=== PATIENT | female | born 1960 | race Caucasian/White ===

== ENCOUNTER → 2020-12-24 | Outpatient (CLI) | payer OTHER ==
--- NOTE | 2020-12-24 13:54 | US ---
EXAMINATION TYPE: US thyroid st tissue head/neck DATE OF EXAM: 12/24/2020 COMPARISON: NONE CLINICAL HISTORY: E04.9 THYROID GOITER. GLAND SIZE: Right Lobe: 4.0 x 1.1 x 1.6 cm Overall Parenchyma: heterogenous Left Lobe: 7.3 x 4.4 x 5.6 cm Overall Parenchyma: heterogeneous Isthmus Thickness: 0.8 cm NODULES RIGHT: # of nodules measured on right: 1 1. 0.5 X 0.4 x 0.4 cm, mid , solid or almost completely solid, hypoechoic nodule, which is wider th an tall, with smooth margins, without echogenic foci. TR4 Prior size: No previous at this facility LEFT: # of nodules measured on left: 1 1. 6.3 X 3.7 x 5.0 cm, mid , solid or almost completely solid, isoechoic nodule, which is wider piedad n tall, with smooth margins, without echogenic foci. TR3 Prior size: No previous ISTHMUS: # of nodules measured in the isthmus: 0 Bilateral neck scanned, no evidence of lymphadenopathy. IMPRESSION: Mildly suspicious subcentimeter nodule right lobe thyroid 2017 ACR TI-RADS LEVEL: TR-RADS 4 - Moderately Suspicious: Follow if > 1 cm, FNA if > 1.5 cm *Highest TI-RADS level nodule reported
== END | disposition home or self-care (01) ==
LOC: RADUSWWP 13:26
PROVIDERS: ATTEND Internal Medicine
DX: E04.1 Nontoxic single thyroid nodule (principal)
CPT/HCPCS: 76536

== ENCOUNTER → 2020-12-29 | Outpatient (CLI) | payer OTHER ==
--- NOTE | 2020-12-29 16:54 | BD ---
EXAMINATION TYPE: Axial Bone Density DATE OF EXAM: 12/29/2020 COMPARISON: NONE CLINICAL HISTORY: 60 YR OLD FEMALE.....ICD-10 CODE: M85.50 POST JOSE GUADALUPE Height: 63 Weight: 264 FRAX RISK QUESTIONS: History of Fracture in Adulthood: YES Secondary Osteoporosis: YES 3. Menopause before 45: YES RISK FACTORS HISTORY OF: HX OF RT FOOT FX AN ADULT Family History of Osteoporosis: YES, MOTHER AND SISTER, NO FX Postmenopausal woman: YES AT ABOUT 39 YRS, NATURALLY, TOTAL HYST 10 YRS AGO Take estrogen and/or progesterone medications: BCPs FOR 10-15 YRS Hyperparathyroidism: NO Adrenal Insufficiency: NO MEDICATIONS: Thyroid Medications: YES, SYNTHROID, FOR ABOUT 2-3 YRS, GOITER Additional Medications: BP MEDS, STATIN FOR CHOLESTEROL, VIT D Additional History: HYPERTENSION, CHOLESTEROL, GOITER, EXAM MEASUREMENTS: Bone mineral densitometry was performed using the [employer] System. Bone mineral density as measured about the Lumbar spine is: ----- L1-L4(G/cm2): 1.078 T Score Values are as follows: ----- L1: -1.3 ----- L2: -1.5 ----- L3: -0.7 ----- L4: -0.1 ----- L1-L4: -0.8 Bone mineral density FIRST BONE DENSITY STUDY AT [facility] Bone mineral density about the R hip (g/cm2): 1.035 Bone mineral density about the L hip (g/cm2): 1.023 T Score values are as follows: -----R Neck: 0.0 -----L Neck: -0.7 -----R Total: 0.2 -----L Total: 0.1 Bone mineral density FIRST DEXA AT [facility] FRAX%s: THERE IS A 10.3% CHANCE FOR A MAJOR OSTEOPOROTIC FX AND A 0.4% FOR HIP......PROBABILITY F OR FX IN 10 YRS TIME IMPRESSION: Normal (Values between +1 and -1 indicate normal bone mass). Consider repeating this study in 5 year s or sooner if there is some new clinical indication. NOTE: T-SCORE=SD OF THE YOUNG ADULT MEAN.
--- NOTE | 2021-01-03 08:58 | MM ---
Reason for exam: screening (asymptomatic). Last mammogram was performed 1 year and 6 months ago. History: Patient is postmenopausal and had first child at age 32. Took hormonal contraceptives beginning at age 23. Physical Findings: A clinical breast exam by your physician is recommended on an annual basis and results should be correlated with mammographic findings. MG Screening Mammo w CAD Bilateral CC and MLO view(s) were taken. Prior study comparison: July 12, 2019, mammogram, performed at [facility]. July 06, 2018, mammogram, performed at [facility]. There are scattered fibroglandular densities. No significant changes when compared with prior studies. ASSESSMENT: Negative, BI-RAD 1 RECOMMENDATION: Routine screening mammogram of both breasts in 1 year.
== END | disposition home or self-care (01) ==
LOC: RADMAMWWP 13:27
PROVIDERS: ATTEND Internal Medicine
DX: Z12.31 Encounter for screening mammogram for malignant neoplasm of breast (principal); Z78.0 Asymptomatic menopausal state; M81.8 Other osteoporosis without current pathological fracture
CPT/HCPCS: 77067; 77080

== ENCOUNTER → 2022-01-05 | Outpatient (CLI) | payer OTHER ==
--- NOTE | 2022-01-05 08:30 | US ---
EXAMINATION TYPE: US thyroid st tissue head/neck DATE OF EXAM: 01/05/2022 COMPARISON: 12/24/2020 CLINICAL HISTORY: E04.9 THYROID NODULE. follow up thyroid nodules GLAND SIZE: Right Lobe: 6.0 x 1.9 x 1.8 cm Overall Parenchyma: heterogenous Left Lobe: 7.6 x 4.0 x 5.2 cm Overall Parenchyma: heterogeneous Isthmus Thickness: 0.5 cm NODULES RIGHT: # of nodules measured on right: 1 1. 0.6 X 0.4 x 0.6 cm, mid , solid or almost completely solid, hypoechoic nodule, which is wider th an tall, with smooth margins, without echogenic foci. Prior size: 0.5 x 0.4 x 0.4 cm LEFT: # of nodules measured on left: 1 1. 6.1 X 3.8 x 6.0 cm, mid , mixed cystic and solid, isoechoic nodule, which is wider than tall, wi th ill-defined margins, without echogenic foci. Prior size: 6.3 x 3.7 x 5.0 cm ISTHMUS: # of nodules measured in the isthmus: 0 Bilateral neck scanned, no evidence of lymphadenopathy. IMPRESSION: Stable nonspecific thyroid nodularity.
--- NOTE | 2022-01-06 07:27 | MM ---
Reason for Exam: Screening (asymptomatic). Last screening mammogram was performed 12 month(s) ago. Patient History: Menarche at age 10. First Full-Term at age 32. Late child-bearing (after 28). Left ovary removed at age 53. Right ovary removed at age 53. Hysterectomy at age 53. Postmenopausal. Hormonal Contraceptives, from age 23 until age 33. Bilateral Reduction. Risk Values: Dee 5 year model risk: 2.2%. NCI Lifetime model risk: 9.1%. Prior Study Comparison: 07/06/2018 Screening Mammogram, [facility]. 07/12/2019 Screening Mammogram, [facility]. 12/29/2020 Bilateral Screening Mammogram, [facility]. Tissue Density: The breast tissue is almost entirely fat. Findings: Analyzed By CAD. Some loosely grouped and scattered benign-appearing small round calcifications bilaterally are redemonstrated. There is no suspicious group of microcalcifications or new suspicious mass in either breast. Overall Assessment: Benign, BI-RAD 2 Management: Screening Mammogram of both breasts in 1 year. A clinical breast exam by your physician is recommended on an annual basis and results should be correlated with mammographic findings. Electronically signed and approved by: Subhash Vo M.D.
== END | disposition home or self-care (01) ==
LOC: RADMAMWWP 07:30
PROVIDERS: ATTEND Internal Medicine
DX: Z12.31 Encounter for screening mammogram for malignant neoplasm of breast (principal); E04.9 Nontoxic goiter, unspecified; Z78.0 Asymptomatic menopausal state
CPT/HCPCS: 76536; 77067

== ENCOUNTER → 2022-06-03 | Outpatient (CLI) | payer OTHER ==
--- NOTE | 2022-06-03 10:11 | XR ---
EXAMINATION TYPE: XR chest 2V DATE OF EXAM: 06/03/2022 10:02 AM COMPARISON: None TECHNIQUE: XR chest 2V Frontal and lateral views of the chest. CLINICAL INDICATION:Female, 61 years old with history of R05.9 COUGH; FINDINGS: Lungs/Pleura: There is no evidence of pleural effusion, focal consolidation, or pneumothorax. Pulmonary vascularity: Unremarkable. Heart/mediastinum: Cardiomediastinal silhouette is unremarkable. Musculoskeletal: No acute osseous pathology. IMPRESSION: No acute cardiopulmonary disease/process.
[2022-06-03 16:42] LABS: Basophils # (A) 0.05 X 10*3/uL (0.00-0.10); Basophils % (A) 0.5 %; Eosinophils # (A) 0.14 X 10*3/uL (0.04-0.35); Eosinophils % (A) 1.4 %; HCT 42.3 % (37.2-46.3); HGB 13.3 g/dL (12.0-15.0); Immature Grans, Automated 0.5 %; Lymphocytes # (A) 4.31 X 10*3/uL (0.90-5.00); Lymphocytes % (A) 43.8 %; MCH 27.2 pg (27.0-32.0); MCHC 31.4 g/dL (32.0-37.0); MCV 86.5 fL (80.0-97.0); Mean Platelet Volume 10.8 fL (9.5-12.2); Monocytes # (A) 0.54 X 10*3/uL (0.20-1.00); Monocytes % (A) 5.5 %; NRBC Per 100 WBC 0 /100 WBCS (0.0-0.0); Neutrophils # (A) 4.75 X 10*3/uL (1.80-7.70); Neutrophils % (A) 48.3 %; Platelet Count 266 X 10*3/uL (140-440); RBC 4.89 X 10*6/uL (4.10-5.20); RDW 12.8 % (11.5-14.5); WBC 9.84 X 10*3/uL (4.50-10.00)
[2022-06-03 17:14] LABS: ALT 18 U/L (8-44); AST 17 U/L (13-35); African American GFR (CKD) 87.5 (60.0-200.0); Albumin 4.1 g/dL (3.8-4.9); Albumin/Globulin Ratio 2.02 (1.60-3.17); Alkaline Phosphatase 56 U/L (41-126); Blood Urea Nitrogen 12.8 mg/dL (9.0-27.0); Calcium 9.4 mg/dL (8.7-10.3); Carbon Dioxide 24.5 mmol/L (20.0-27.5); Chloride 103 mmol/L (96-109); Chol/HDL Ratio 3.21 Ratio; Globulin 2.1 g/dL (1.6-3.3); Glucose 108 mg/dL (70-110); Non-African American GFR(CKD) 75.5 (60.0-200.0); Potassium 4.6 mmol/L (3.5-5.5); Sodium 137 mmol/L (135-145); Total Protein 6.2 g/dL (6.2-8.2)
== END | disposition home or self-care (01) ==
LOC: LABWHC1 09:12
PROVIDERS: ATTEND Internal Medicine
DX: I10 Essential (primary) hypertension (principal); E55.9 Vitamin D deficiency, unspecified; R73.9 Hyperglycemia, unspecified; R05.9 Cough, unspecified
CPT/HCPCS: 36415; 71046; 80053; 80061; 82306; 83036; 84443; 85025

== ENCOUNTER → 2023-02-05 | Outpatient (CLI) | payer OTHER ==
--- NOTE | 2023-02-05 09:22 | USB ---
Reason for Exam: Additional evaluation requested from abnormal screening. Patient History: Menarche at age 10. First Full-Term at age 32. Late child-bearing (after 28). Left ovary removed at age 53. Right ovary removed at age 53. Hysterectomy at age 53. Postmenopausal. Patient has history of breast feeding. Hormonal Contraceptives, from age 23 until age 33. Bilateral Reduction. Risk Values: Dee 5 year model risk: 2.2%. NCI Lifetime model risk: 8.9%. Technique: Method: Targeted. Prior Study Comparison: 12/29/2020 Bilateral Screening Mammogram, [facility]. 01/05/2022 Bilateral MG screening mammo w CAD, [facility]. 01/26/2023 Bilateral MG screening mammo w CAD, [facility]. Findings: The upper outer quadrant of the left breast was scanned. Technique utilized:US breast workup limited LT Image; Ultrasound imaging of: Area of concern, retroareolar region and axilla. No evidence for organizing fluid collection or mass. Overall Assessment: Benign, BI-RAD 2 Management: Screening Mammogram of both breasts in 1 year. A clinical breast exam by your physician is recommended on an annual basis and results should be correlated with mammographic findings. This exam should not preclude additional follow-up of suspicious palpable abnormalities. Results were given to the patient verbally at the time of exam. Electronically signed and approved by: Naveed Howell DO
== END | disposition home or self-care (01) ==
LOC: RADUSWWP 08:24
PROVIDERS: ATTEND Internal Medicine
DX: R92.8 Other abnormal and inconclusive findings on diagnostic imaging of breast (principal); Z78.0 Asymptomatic menopausal state

== ENCOUNTER → 2024-02-12 | Outpatient (CLI) | payer MEDICARE, OTHER ==
--- NOTE | 2024-02-13 00:45 | US ---
EXAMINATION TYPE: US thyroid st tissue head/neck DATE OF EXAM: 02/12/2024 COMPARISON: 01/26/23 CLINICAL INDICATION: Female, 63 years old with history of E04.9 THY GOITER; thyroid goiter GLAND SIZE: Right Lobe: 5.6 x 1.8 x 1.5 cm Overall Parenchyma: homogeneous Left Lobe: 6.5 x 4.9 x 3.1 cm Overall Parenchyma: homogeneous Isthmus Thickness: 0.8 cm NODULES RIGHT: # of nodules measured on right: 1 1. 0.7 X 0.7 x 0.5 cm, mid medial, solid or almost completely solid, hypoechoic nodule, which is wi joi than tall, with ill-defined margins, without echogenic foci. TR 4 Prior size: 0.7 x 0.5 x 0.6 cm LEFT: # of nodules measured on left: 1 1. 5.7 X 4.9 x 3.8 cm, mid mid, mixed cystic and solid, isoechoic nodule, which is wider than tall, with smooth margins, without echogenic foci. TR 2 Prior size: 6.6 x 6.0 x 3.9 cm ISTHMUS: # of nodules measured in the isthmus: 0 Bilateral neck scanned, no evidence of lymphadenopathy. IMPRESSION: 1. Moderately suspicious subcentimeter nodule right lobe thyroid. 2017 ACR TI-RADS LEVEL: TR-RADS 4 - Moderately Suspicious: Follow if > 1 cm, FNA if > 1.5 cm *Highest TI-RADS level nodule reported [facility], , 02/13/2024 12:43 AM
== END | disposition home or self-care (01) ==
LOC: RADUSWWP 09:45
PROVIDERS: ATTEND Internal Medicine
DX: E04.1 Nontoxic single thyroid nodule (principal)
CPT/HCPCS: 76536

== ENCOUNTER → 2024-02-12 | Outpatient (CLI) | payer OTHER, MEDICARE ==
--- NOTE | 2024-02-14 08:38 | MM ---
Reason for Exam: Screening (asymptomatic). Last screening mammogram was performed 12 month(s) ago. Patient History: Menarche at age 10. First Full-Term at age 32. Late child-bearing (after 30). Left ovary removed at age 53. Right ovary removed at age 53. Hysterectomy at age 53. Postmenopausal. Patient has history of breast feeding. Hormonal Contraceptives, from age 23 until age 33. Bilateral Reduction. Risk Values: Dee 5 year model risk: 2.3%. NCI Lifetime model risk: 8.6%. Prior Study Comparison: 12/29/2020 Bilateral Screening Mammogram, [facility]. 01/05/2022 Bilateral MG screening mammo w CAD, [facility]. 01/26/2023 Bilateral MG screening mammo w CAD, [facility]. Tissue Density: The breasts are heterogeneously dense, which may obscure small masses. Findings: Analyzed By CAD. Suspicious grouped calcifications. Benign-appearing calcifications. Chronic nodularity along the medial margin of the right breast could be related to avulsion correlate with clinical exam. Vague density in the left upper breast and right central breast for which spot compression views are recommended. Overall Assessment: Incomplete: need additional imaging evaluation, BI-RAD 0 Management: Diagnostic Mammogram of both breasts. . Patient should continue monthly self-breast exams. A clinical breast exam by your physician is recommended on an annual basis. This exam should not preclude additional follow-up of suspicious palpable abnormalities. Note on Dee scores and lifetime risk: 1. A Dee score greater than 3% is considered moderate risk. If this is the case, consider specialist referral to assess eligibility for a risk reducing agent. 2. If overall lifetime risk for the development of breast cancer is 20% or higher, the patient may qualify for future screening with alternating mammogram and breast MRI. [facility], , 02/14/2024 8:35 AM. Electronically signed and approved by: Axel Curtis M.D. Radiologis
== END | disposition home or self-care (01) ==
LOC: RADMAMWWP 09:48
PROVIDERS: ATTEND Internal Medicine
DX: Z12.31 Encounter for screening mammogram for malignant neoplasm of breast
CPT/HCPCS: 77063; 77067

== ENCOUNTER → 2024-02-20 | Outpatient (CLI) | payer MEDICARE ==
--- NOTE | 2024-02-20 08:59 | MM ---
Reason for Exam: Additional evaluation requested from abnormal screening. Last screening mammogram was performed less than 1 month ago. Patient History: Menarche at age 10. First Full-Term at age 32. Late child-bearing (after 30). Left ovary removed at age 53. Right ovary removed at age 53. Hysterectomy at age 53. Postmenopausal. Patient has history of breast feeding. Hormonal Contraceptives, from age 23 until age 33. Bilateral Reduction. Risk Values: Dee 5 year model risk: 2.3%. NCI Lifetime model risk: 8.6%. Prior Study Comparison: 01/26/2023 Bilateral MG screening mammo w CAD, [facility]. 02/12/2024 Bilateral MG 3D screening mammo w/cad, [facility]. Tissue Density: The breasts are heterogeneously dense, which may obscure small masses. Findings: Analyzed By CAD. No evidence for persistent nodule or mass. No distortion or suspicious calcifications. Overall Assessment: Negative, BI-RAD 1 Management: Screening Mammogram of both breasts in 1 year. . Results were given to the patient verbally at the time of exam. Patient should continue monthly self-breast exams. A clinical breast exam by your physician is recommended on an annual basis. This exam should not preclude additional follow-up of suspicious palpable abnormalities. Note on Dee scores and lifetime risk: 1. A Dee score greater than 3% is considered moderate risk. If this is the case, consider specialist referral to assess eligibility for a risk reducing agent. 2. If overall lifetime risk for the development of breast cancer is 20% or higher, the patient may qualify for future screening with alternating mammogram and breast MRI. [facility], , 02/20/2024 8:53 AM. Electronically signed and approved by: Patrick Mckeon M.D. Radiologis
== END | disposition home or self-care (01) ==
LOC: RADMAMWWP 08:22
PROVIDERS: ATTEND Internal Medicine
DX: R92.8 Other abnormal and inconclusive findings on diagnostic imaging of breast
CPT/HCPCS: 77062; 77066

== ENCOUNTER → 2024-04-07 | Outpatient (CLI) | payer MEDICARE | END | disposition home or self-care (01) | LOC: LABWHC1 10:38 | PROVIDERS: ATTEND Internal Medicine | DX: Z11.1 Encounter for screening for respiratory tuberculosis (principal) | CPT/HCPCS: 36415; 86480 ==

== ENCOUNTER → 2024-09-17 | Outpatient (CLI) | payer MEDICARE ==
--- NOTE | 2024-09-17 08:46 | XR ---
EXAMINATION TYPE: XR chest 2V DATE OF EXAM: 09/17/2024 8:08 AM COMPARISON: 06/03/2022 CLINICAL INDICATION: Female, 63 years old with history of J45.909 Reactive Airway Disease, , TECHNIQUE: Frontal and lateral views FINDINGS: Hazy densities caused by patient body habitus and overlying soft tissue. Heart upper limits of normal in size. Aorta and pulmonary vasculature are within normal limits. Possible rightward deviation of t he trachea. Aorta and pulmonary vasculature are within normal limits. No consolidation or pleural eff usion seen. IMPRESSION: 1. Apparent rightward deviation of the trachea. This may be anatomic variation. Consider thyroid ultr asound to exclude any underlying goiter or dominant left-sided nodule. 2. Borderline heart size. No acute process otherwise seen. [facility], , 09/17/2024 8:44 AM
[2024-09-17 10:13] LABS: HCT 40.8 % (37.2-46.3); HGB 13.2 g/dL (12.0-15.0); MCH 27.8 pg (27.0-32.0); MCHC 32.4 g/dL (32.0-37.0); MCV 85.9 FL (80.0-97.0); Mean Platelet Volume 10.6 FL (9.5-12.2); NRBC Per 100 WBC 0 X 10*3/uL (0.00-0.01); Platelet Count 250 X 10*3/uL (140-440); RBC 4.75 X 10*6/uL (4.10-5.20); RDW 13.5 % (11.5-14.5); WBC 12.25 X 10*3/uL (4.50-10.00)
[2024-09-17 10:29] LABS: ALT 39 U/L (8-44); AST 32 U/L (13-35); Albumin 4.3 g/dL (3.8-4.9); Albumin/Globulin Ratio 2.05 Ratio (1.60-3.17); Alkaline Phosphatase 66 U/L (41-126); BUN/Creat Ratio 17.71 Ratio (12.00-20.00); Blood Urea Nitrogen 12.4 mg/dL (9.0-27.0); Calcium 9.2 mg/dL (8.7-10.3); Carbon Dioxide 24.5 mmol/L (21.6-31.8); Chloride 103 mmol/L (96-109); Chol/HDL Ratio 3.16 Ratio; Globulin 2.1 g/dL (1.6-3.3); Glucose 129 mg/dL (70-110); LDL Cholesterol,Calculated 54.1 mg/dL (0.0-131.0); Magnesium 1.9 mg/dL (1.5-2.4); Potassium 4.4 mmol/L (3.5-5.5); Sodium 138 mmol/L (135-145); Total Bilirubin 0.4 mg/dL (0.3-1.2); Total Protein 6.4 g/dL (6.2-8.2)
[2024-09-17 10:48] LABS: Basophils # (M) 0.49 X 10*3/uL (0.00-0.10); Eosinophils # (M) 0 X 10*3/uL (0.04-0.35); Lymphocytes # (M) 6.12 X 10*3/uL (0.90-5.00); Monocytes # (M) 0.49 X 10*3/uL (0.20-1.00); Neutrophils # (M) 5.15 X 10*3/uL (1.80-7.70); Neutrophils % (M) 42 %
[2024-09-17 21:41] LABS: Microalbumin Creatinine Ratio <10 mg/g Cr (0-30)
== END | disposition home or self-care (01) ==
LOC: LABWHC1 07:41
PROVIDERS: ATTEND Internal Medicine
DX: J39.8 Other specified diseases of upper respiratory tract (principal); I10 Essential (primary) hypertension; E78.5 Hyperlipidemia, unspecified; E11.9 Type 2 diabetes mellitus without complications; E55.9 Vitamin D deficiency, unspecified; J45.909 Unspecified asthma, uncomplicated
CPT/HCPCS: 36415; 71046; 80053; 80061; 82043; 82306; 82570; 83036; 83735; 85025

== ENCOUNTER → 2024-09-30 | Outpatient (CLI) | payer MEDICARE ==
[2024-09-30 14:55] LABS: HCT 40.6 % (37.2-46.3); HGB 13.5 g/dL (12.0-15.0); MCHC 33.3 g/dL (32.0-37.0); MCV 84.2 fL (80.0-97.0); Mean Platelet Volume 10.5 fL (9.5-12.2); Platelet Count 244 10*3/uL (140-440); RBC 4.82 10*6/uL (4.10-5.20); RDW 13.2 % (11.5-14.5); WBC 13.68 10*3/uL (4.50-10.00)
[2024-09-30 15:40] LABS: Eosinophils # (M) 0.14 k/uL (0-0.7); Lymphocytes # (M) 7.66 k/uL (1.0-4.8); Monocytes # (M) 0.27 k/uL (0-1.0); Neutrophils # (M) 5.61 k/uL (1.3-7.7); Neutrophils % (M) 41 %; Nucleated Red Blood Cells 0 /100 WBC (0-0); Total Cells Counted 100
[2024-09-30 15:41] LABS: Large Platelets Present
[2024-09-30 18:29] LABS: Hepatitis C IgG Antibody Nonreactive (Nonreactive)
[2024-09-30 21:20] LABS: HIV 2 AB Non-Reactive (Non-Reactive); HIV AB P24 Non-Reactive (Non-Reactive); HIV P24 AG Non-Reactive (Non-Reactive)
== END | disposition home or self-care (01) ==
LOC: LABWHC1 14:04
PROVIDERS: ATTEND Internal Medicine
DX: D72.829 Elevated white blood cell count, unspecified (principal)
CPT/HCPCS: 36415; 82607; 82746; 83615; 84165; 85025; 86038; 86334; 86803; 87390

== ENCOUNTER → 2024-09-30 | Outpatient (CLI) | payer MEDICARE ==
--- NOTE | 2024-09-30 13:51 | US ---
EXAMINATION TYPE: US thyroid st tissue head/neck DATE OF EXAM: 09/30/2024 COMPARISON: 02/12/2024 CLINICAL INDICATION: Female, 63 years old with history of J45.909 UNSPECIFIED ASTHMA, UNCOMPLICATED; Goiter, difficulty breathing TECHNIQUE: Grayscale and color Doppler imaging of the thyroid gland. FINDINGS: GLAND SIZE: Right Lobe: 5.1 x 1.3 x 1.8 cm Overall Parenchyma: heterogeneous Left Lobe: 8.3 x 4.3 x 6.5 cm Overall Parenchyma: heterogeneous Isthmus Thickness: 1.1 cm NODULES RIGHT: # of nodules measured on right: 1 1. 0.7 X 0.5 x 0.8 cm, mid medial, solid or almost completely solid, hypoechoic TR 4 nodule, which is wider than tall, with ill-defined margins, without echogenic foci. Prior size: 0.7 x 0.5 x 0.7 cm LEFT: # of nodules measured on left: 1 1. 6.6 X 3.9 x 6.2 cm, mid , solid or almost completely solid, heterogeneous isoechoic TR 3 nodule, which is wider than tall, with smooth margins, without echogenic foci. Prior size: 5.7 x 3.8 x 4.9 cm ISTHMUS: # of nodules measured in the isthmus: 0 Bilateral neck scanned, no evidence of lymphadenopathy. IMPRESSION: 1. Very large heterogeneous TR3 nodule occupying the left thyroid lobe estimated at 6.6 x 6.2 cm vers us 5.7 x 4.9 cm, previously. FNA if not previously performed. 2. Solitary 8 x 7 mm TR4 nodule on the right, not significantly changed from prior. TR4: If nodule size is ? 1.5 cm, FNA is recommended. If nodule size is ? 1.0 cm, follow-up imaging at 1, 2, 3, and 5 years is recommended. [facility], , 09/30/2024 1:48 PM
== END | disposition home or self-care (01) ==
LOC: RADUSWWP 12:02
PROVIDERS: ATTEND Internal Medicine
DX: E04.1 Nontoxic single thyroid nodule (principal); J45.909 Unspecified asthma, uncomplicated
CPT/HCPCS: 76536; 94060; 94726; 94729

== ENCOUNTER → 2024-11-17 | Outpatient (CLI) | payer MEDICARE ==
[2024-11-17 15:40] LABS: Protein, Total 6.7 g/dL (6.2-8.2)
[2024-11-17 15:48] LABS: BUN/Creat Ratio 17.75 Ratio (12.00-20.00); Blood Urea Nitrogen 14.2 mg/dL (9.0-27.0); Chloride 104 mmol/L (96-109); Glucose 130 mg/dL (70-110); Potassium 4.5 mmol/L (3.5-5.5); Sodium 139 mmol/L (135-145)
[2024-11-17 15:49] LABS: ALT 30 U/L (8-44); AST 31 U/L (13-35); Albumin 4.4 g/dL (3.8-4.9); Albumin/Globulin Ratio 2.32 Ratio (1.60-3.17); Alkaline Phosphatase 67 U/L (41-126); Calcium 9.3 mg/dL (8.7-10.3); Carbon Dioxide 24.3 mmol/L (21.6-31.8); Globulin 1.9 g/dL (1.6-3.3); T4, Free (Free Thyroxine) 1.17 ng/dL (0.80-1.80); Total Bilirubin 0.4 mg/dL (0.3-1.2); Total Protein 6.3 g/dL (6.2-8.2)
[2024-11-17 16:13] LABS: Basophils # (A) 0.05 X 10*3/uL (0.00-0.10); Basophils % (A) 0.4 %; Eosinophils # (A) 0.17 X 10*3/uL (0.04-0.35); Eosinophils % (A) 1.3 %; HCT 39.3 % (37.2-46.3); HGB 12.4 g/dL (12.0-15.0); Lymphocytes # (A) 4.25 X 10*3/uL (0.90-5.00); Lymphocytes % (A) 32.8 %; MCH 27.1 pg (27.0-32.0); MCHC 31.6 g/dL (32.0-37.0); Monocytes % (A) 5.4 %; NRBC Per 100 WBC 0 X 10*3/uL (0.00-0.01); Neutrophils # (A) 7.71 X 10*3/uL (1.80-7.70); Neutrophils % (A) 59.6 %; Platelet Count 249 X 10*3/uL (140-440); RBC 4.57 X 10*6/uL (4.10-5.20); RDW 13.3 % (11.5-14.5); WBC 12.94 X 10*3/uL (4.50-10.00)
== END | disposition home or self-care (01) ==
LOC: LABWHC1 11:15
PROVIDERS: ATTEND Internal Medicine
DX: D72.829 Elevated white blood cell count, unspecified (principal); E04.9 Nontoxic goiter, unspecified
CPT/HCPCS: 36415; 80053; 84165; 84439; 84443; 85025; 86334